=== PATIENT | female | born 1970 | race Caucasian/White ===

== ENCOUNTER → 2018-06-26 | Outpatient (CLI) | payer BC ==
[2018-06-26 22:50] LABS: Vitamin D 25 Hydroxy 44.5 ng/mL (30.0-100.0)
== END | disposition home or self-care (01) ==
LOC: LABWHC1 15:37
PROVIDERS: ATTEND Obstetrics & Gynecology
DX: E34.9 Endocrine disorder, unspecified (principal); Z13.29 Encounter for screening for other suspected endocrine disorder; Z13.21 Encounter for screening for nutritional disorder
CPT/HCPCS: 36415; 82306; 83001; 83002; 84439; 84443

== ENCOUNTER → 2019-02-27 | Outpatient (CLI) | payer BC ==
[2019-02-27 07:47] LABS: HCT 40.1 % (34.0-46.0); HGB 13.1 gm/dL (11.4-16.0); MCH 32.2 pg (25.0-35.0); MCHC 32.6 g/dL (31.0-37.0); MCV 98.8 fL (80.0-100.0); Mean Platelet Volume 6.8; Platelet Count 260 k/uL (150-450); RBC 4.06 m/uL (3.80-5.40); RDW 11.8 % (11.5-15.5)
[2019-02-27 11:50] LABS: African American GFR (CKD) 101.8 (60.0-200.0); Albumin 4.7 g/dL (3.80-4.90); Albumin/Globulin Ratio 2.35 (1.60-3.17); Anion Gap 8.6 mmol/L (4.00-12.00); BUN/Creat Ratio 16.25 Ratio (12.00-20.00); Calcium 9.7 mg/dL (8.7-10.3); Carbon Dioxide 27.4 mmol/L (21.6-31.8); Chol/HDL Ratio 2.79; LDL Cholesterol,Calculated 87.4 mg/dL (0.0-131.0); Potassium 4.3 mmol/L (3.5-5.5); Total Bilirubin 0.7 mg/dL (0.3-1.2); Total Protein 6.7 g/dL (6.2-8.2); VLDL Calculation 14.6 mg/dL (5.00-40.00)
[2019-02-27 14:26] LABS: Hemoglobin A1C 5.2 % (4.0-6.0)
== END | disposition home or self-care (01) ==
LOC: LABWHC1 07:21
PROVIDERS: ATTEND Family Medicine
DX: F32.9 Major depressive disorder, single episode, unspecified (principal); E66.3 Overweight
CPT/HCPCS: 36415; 80053; 80061; 83036; 84443; 85027

== ENCOUNTER → 2020-07-05 | Outpatient (CLI) | payer BC ==
--- NOTE | 2020-07-06 12:01 | MM ---
Reason for exam: screening (asymptomatic). Last mammogram was performed 6 years and 7 months ago. Physical Findings: A clinical breast exam by your physician is recommended on an annual basis and results should be correlated with mammographic findings. MG Screening Mammo w CAD Bilateral CC and MLO view(s) were taken. Prior study comparison: December 02, 2013, bilateral MG screening mammo w CAD. The breast tissue is heterogeneously dense. This may lower the sensitivity of mammography. There are benign appearing round calcifications bilaterally. Asymmetric breast tissue right breast, stable since 2012. There is no discrete abnormality. ASSESSMENT: Negative, BI-RAD 1 RECOMMENDATION: Routine screening mammogram of both breasts in 1 year.
== END | disposition home or self-care (01) ==
LOC: RADMAMWWP 11:44
PROVIDERS: ATTEND Family Medicine
DX: Z12.31 Encounter for screening mammogram for malignant neoplasm of breast (principal)
CPT/HCPCS: 77067

== ENCOUNTER 2020-08-01 12:41 | Emergency (ER) | payer BC ==
[2020-08-01 12:50] VITALS: BP 132/92; PULSE 80; RESP 18; TEMP 98.2
--- NOTE | 2020-08-01 13:19 | ED ---
Lower Extremity Injury HPI - General Chief Complaint: Extremity Injury, Lower Stated Complaint: Fall, R Ankle Pain Time Seen by Provider: 08/01/20 12:57 Source: patient Mode of arrival: wheelchair Limitations: no limitations - History of Present Illness Initial Comments: Patient is a 50-year-old female presenting to the emergency department with complaints of right ankle pain after she tripped and fell just prior to arrival. Patient states she was playing with her dog when she missed 2 steps and fell down rolling her right ankle. She is complaining of pain in the lateral portion of her right ankle as well as the top of her right foot. She denies any other injuries from this fall, she did not hit her head. She denies any previous injuries or surgeries of her right ankle other than the common sprains. She has no further complaints at this time. - Related Data Home Medications Medication Instructions Recorded Confirmed Albuterol Inhaler (Mhu) [Ventolin 1 - 2 puff INHALATION Q6HR PRN 09/18/14 09/21/14 Inhaler] Budesonide/Formoterol Fumarate 2 puff INHALATION BID 09/18/14 09/21/14 [Symbicort 160-4.5 Mcg Inhaler] Escitalopram [Lexapro] 10 mg PO DAILY 09/18/14 09/21/14 Linzess(Unknown Dose) PO DAILY 09/18/14 09/21/14 Rizatriptan Benzoate [Maxalt] 10 mg PO DAILY PRN 09/18/14 09/21/14 Allergies Allergy/AdvReac Type Severity Reaction Status Date / Time No Known Allergies Allergy Verified 08/01/20 12:44 Review of Systems ROS Statement: Those systems with pertinent positive or pertinent negative responses have been documented in the HPI. ROS Other: All systems not noted in ROS Statement are negative. Past Medical History Past Medical History: Asthma Additional Past Medical History / Comment(s): hx. migraines, hevay,frequent periods History of Any Multi-Drug Resistant Organisms: None Reported Past Surgical History: Cholecystectomy, Tubal Ligation Additional Past Surgical History / Comment(s): D & C Past Anesthesia/Blood Transfusion Reactions: No Reported Reaction Past Psychological History: Anxiety Past Alcohol Use History: Occasional Past Drug Use History: None Reported - Past Family History Mother Family Medical History: Cancer General Exam - General Exam Comments Initial Comments: GENERAL: Patient is well-developed and well-nourished. Patient is nontoxic and in no acute distress. HEAD: Atraumatic, normocephalic. EYES: Pupils equal round and reactive to light, extraocular movements intact, sclera anicteric, conjunctiva are normal. Eyelids were unremarkable. ENT: Nares patent, oropharynx clear without exudates. Moist mucous membranes. NECK: Normal range of motion, supple without lymphadenopathy or JVD. LUNGS: Unlabored respirations. Breath sounds clear to auscultation bilaterally and equal. No wheezes rales or rhonchi. HEART: Regular rate and rhythm without murmurs, rubs or gallops. ABDOMEN: Soft, nontender, normoactive bowel sounds. No guarding, no rebound. No masses appreciated. : Deferred MUSCULOSKELETAL: Patient has pain to palpation of the right lateral malleolus, there is some mild swelling present, decreased active range of motion secondary to pain. She also has some mild pain to palpation in the dorsal aspect of the right foot. She is neurovascular intact. Rest of extremities are within normal limits. No clubbing or cyanosis. NEUROLOGICAL: Patient is alert and oriented x 3. Motor and sensory are also intact. Cranial nerves II through XII grossly intact. Symmetrical smile. Normal speech, normal gait. PSYCH: Normal mood, normal affect. SKIN: Warm, Dry, normal turgor, no rashes or lesions noted. Limitations: no limitations Course Vital Signs 08/01/20 12:46 Temperature 98.2 F Pulse Rate 80 Respiratory 18 Rate Blood Pressure 132/92 O2 Sat by Pulse 99 Oximetry Procedures - Orthopedic Splinting/Casting Injury #1 Side: right Lower Extremity Injury Location: ankle Lower Extremity Immobilizer: stirrup splint, Brent wrap Medical Decision Making - Medical Decision Making Patient is a 50-year-old female here with right foot and ankle pain after she tripped and fell just prior to arrival. No previous injuries or surgeries. X- rays reveal no acute fractures dislocations, there is question of an old injury. I did recommend a splint for patient, she refused, she was willing to take an Aircast home. I did place an Brent wrap on the patient, recommended nonweightbearing, she has seen [facility] in [facility] past, we'll give her referral. Recommended ice, elevation, compression. She is requesting a work note. She is stable for discharge. Case discussed with Dr. Shaver. Disposition Clinical Impression: Right ankle sprain Disposition: HOME SELF-CARE Condition: Stable Instructions (If sedation given, give patient instructions): Ankle Sprain (ED) Additional Instructions: Please return to the Emergency Department if symptoms worsen or any other concerns. Recommend following up with orthopedics in one week. Continue with brace, ice, compression and ibuprofen for discomfort. Is patient prescribed a controlled substance at d/c from ED?: No Referrals: Hood Smart MD [Primary Care Provider] - 1-2 days Gordy Reyes MD [STAFF PHYSICIAN] - 1-2 days Time of Disposition: 13:58
--- NOTE | 2020-08-01 13:35 | XR ---
EXAMINATION TYPE: XR ankle complete RT, XR foot complete RT DATE OF EXAM: 08/01/2020 CLINICAL HISTORY: Fall injury with pain TECHNIQUE: Frontal, lateral and oblique images of the right ankle and foot are obtained. COMPARISON: None. FINDINGS: There is no acute fracture/dislocation evident in the right ankle. The ankle mortise appe ars within normal limits. The overlying soft tissue appears unremarkable. There is no acute fracture or dislocation evident in the right foot. There is absent distal one thir d of the fifth proximal phalanx with small rounded density, suspect old injury. Correlate clinically. The joint spaces in the right foot are preserved. Overlying soft tissue is unremarkable. IMPRESSION: There is no acute fracture or dislocation in the right ankle or foot.
== END 2020-08-01 14:04 | disposition home or self-care (01) ==
LOC: EC 12:41
DX: S93.401A Sprain of unspecified ligament of right ankle, initial encounter (principal); J45.909 Unspecified asthma, uncomplicated; F41.9 Anxiety disorder, unspecified; Z79.51 Long term (current) use of inhaled steroids; Z79.899 Other long term (current) drug therapy; W01.0XXA Fall on same level from slipping, tripping and stumbling without subsequent striking against object, initial encounter
CPT/HCPCS: 29515; 99283

== ENCOUNTER → 2020-11-23 | Outpatient (CLI) | payer BC | END | disposition home or self-care (01) | LOC: LABWHC1 11:37 | PROVIDERS: ATTEND Nurse Practitioner Family | DX: J30.89 Other allergic rhinitis (principal) | CPT/HCPCS: 36415 ==

== ENCOUNTER → 2020-12-02 | Outpatient (CLI) | payer BC ==
--- NOTE | 2020-12-02 08:02 | CT ---
EXAMINATION TYPE: CT sinus wo con DATE OF EXAM: 12/02/2020 COMPARISON: None HISTORY: Chronic Sinusitis CT DLP: 596.[address] of the paranasal sinuses was performed in the axial and coronal planes. Bone and soft tissue settings are submitted. There is evidence of prior medial maxillary antrectomy bilaterally. There is moderate mucosal thicken ing of the maxillary sinuses. Partial ethmoidectomy noted with remaining ethmoid air cells demonstrat e mucosal thickening and opacification. The frontal sinuses well aerated. Sphenoid sinus demonstrates mild mucosal thickening. Mastoid air cells are well-aerated. No bony destructive process seen. The n gerard septum is midline. IMPRESSION: Chronic sinusitis and postoperative changes noted.
== END | disposition home or self-care (01) ==
LOC: RADCTMAIN 06:47
PROVIDERS: ATTEND Otolaryngology
DX: J32.9 Chronic sinusitis, unspecified (principal); Z98.890 Other specified postprocedural states
CPT/HCPCS: 70486

== ENCOUNTER → 2021-04-26 | Outpatient (CLI) | payer BC ==
[2021-04-26 11:04] LABS: HCT 40.8 % (37.2-46.3); HGB 12.8 g/dL (12.0-15.0); MCH 31.4 pg (27.0-32.0); MCHC 31.4 g/dL (32.0-37.0); MCV 100.2 fL (80.0-97.0); Mean Platelet Volume 10.5 fL (9.5-12.2); Platelet Count 338 X 10*3/uL (140-440); RBC 4.07 X 10*6/uL (4.10-5.20); RDW 11.4 % (11.5-14.5); WBC 9.07 X 10*3/uL (4.50-10.00)
[2021-04-26 12:29] LABS: Thyroid Peroxidase Antibodies 10.3 U/mL (0.0-33.0)
[2021-04-26 13:15] LABS: Prolactin 14.4 ng/mL (2.800-29.200); Testosterone 5.41 ng/mL (7.00-45.62)
[2021-04-26 13:24] LABS: African American GFR (CKD) 90.4 (60.0-200.0); Albumin 4.4 g/dL (3.8-4.9); Albumin/Globulin Ratio 2.39 (1.60-3.17); Anion Gap 11.9 mmol/L (10.00-18.00); BUN/Creat Ratio 15.8 Ratio (12.00-20.00); Blood Urea Nitrogen 13.7 mg/dL (9.0-27.0); Calcium 9.4 mg/dL (8.7-10.3); Carbon Dioxide 25.4 mmol/L (20.0-27.5); Follicle Stimulating Hormone 6.8 mIU/mL; Globulin 1.8 g/dL (1.6-3.3); Luteinizing Hormone 22.2 mIU/mL; T4, Free (Free Thyroxine) 1.05 ng/dL (0.800-1.800); Total Bilirubin 0.2 mg/dL (0.30-1.20); Total Protein 6.2 g/dL (6.2-8.2)
[2021-04-27 09:57] LABS: ACTH 17.9 pg/mL (0.00-45.99)
== END | disposition home or self-care (01) ==
LOC: LABWHC1 07:43
PROVIDERS: ATTEND Internal Medicine Endocrinology, Diabetes & Metabolism
DX: R53.83 Other fatigue (principal)
CPT/HCPCS: 36415; 80053; 82024; 82533; 82607; 83001; 83002; 84146; 84403; 84439; 84443; 84481; 85027; 86376

== ENCOUNTER → 2021-08-10 | Outpatient (CLI) | payer BC ==
--- NOTE | 2021-08-10 12:03 | CONS ---
CONSULTATION DATE OF SERVICE: 08/10/2021 This 51-year-old lady has been evaluated in Sleep Center for excessive daytime sleepiness. HISTORY OF PRESENT ILLNESS/SLEEP-WAKE EVALUATION: Patient's usual sleep schedule is from 10 p.m. to 6 a.m. and on weekends from 10 p.m., but then it varies; she wakes up later. No problems with falling asleep. She falls asleep quite quickly. She has a TV set in the bedroom. She sleeps in different positions. Previously she mostly would sleep on her back, but now has started to sleep more on the side. She wakes up from sleep one time with nocturia. No history of hypnagogic hallucinations, sleep paralysis or cataplexy. In the morning the patient wakes up tired, has episodes of anxiety, irritability. [place] Sleepiness Scale increased to 12. PAST MEDICAL HISTORY: Positive for anxiety, acid reflux, sinus problems. PAST SURGICAL HISTORY: Cholecystectomy, tubal ligation, sinus surgery. CURRENT MEDICATIONS: 1. Lexapro 20 mg once a day. 2. Nexium 40 mg twice a day. FAMILY HISTORY: Positive for heart problems, cancer, diabetes. SOCIAL HISTORY: Positive for smoking in the past. Alcohol consumption: Beer on weekends. REVIEW OF SYSTEMS: Sleepiness during the day. [place] Sleepiness Scale increased to 12. No fevers. No double vision. No recent chest pain. No shortness of breath. No abdominal pain. No bleeding episodes. No blood in the urine. No seizure episodes. PHYSICAL EXAMINATION: GENERAL: Pleasant lady without distress. VITAL SIGNS: BP 137/88, HR 57, RR 16, height 5 feet 5 inches, weight 171.6, body mass index 28.4, temperature 97.1, oxygen saturation at room air 98%. HEENT: PERRLA, EOMI, evaluation of oropharynx showed tongue protrudes midline. Extremely low position of soft palate; Mallampati IV. NECK: Supple, no JVD. Thyroid is not palpable. Neck measures 14 inches in circumference. LUNGS: Clear to percussion and to auscultation. Good air exchange. No wheezing or rhonchi. HEART: S1, S2 regular. No murmurs, gallops, or rubs. ABDOMEN: Soft and nontender. Bowel sounds are present. No organomegaly appreciated. EXTREMITIES: No clubbing or cyanosis. INTEGRATION SOLUTION ARCHITECT: Awake, alert, and oriented X3. Cranial nerves 2 to 7 intact. There is no fasciculation or atrophy. noted. No focal deficits observed. IMPRESSION: 1. Sleepiness during the day, [place] Sleepiness Scale increased to 12, extremely low position of soft palate, Mallampati IV; possible obstructive sleep apnea-hypopnea syndrome. 2. History of anxiety. 3. Acid reflux. 4. Status post cholecystectomy. 5. Status post tubal ligation. 6. History of sinus problems. PLAN: 1. Home sleep apnea test for evaluation of patient's breathing during sleep. 2. If the sleep study if positive, we will initiate treatment with CPAP; if negative, we may consider multiple sleep latency test for objective evaluation of patient's symptoms of excessive daytime sleepiness. 3. CPAP/BiPAP titration if sleep study confirms obstructive sleep apnea-hypopnea syndrome. 4. Preferable position during sleep on the side. 5. No driving if patient feels any sleepiness. 6. I will see patient for follow up visit to explain results of testing and following plan. Thank you very much for referring this patient for consultation. Sincerely, Rancho Kaplan MD, PhD, FAASM Diplomat of [place] [employer] Sleep Medicine Board of [place] [employer] of [employer] Medicine Senior Cyber Security Analyst of [facility] [employer] MMODL / IJN: [id number] /
== END ==
LOC: SLEEP 09:49
PROVIDERS: ATTEND Internal Medicine
DX: G47.10 Hypersomnia, unspecified (principal); F41.9 Anxiety disorder, unspecified; K21.9 Gastro-esophageal reflux disease without esophagitis; Z90.49 Acquired absence of other specified parts of digestive tract; Z98.51 Tubal ligation status; Z87.09 Personal history of other diseases of the respiratory system; Z87.891 Personal history of nicotine dependence
CPT/HCPCS: 99211

== ENCOUNTER → 2021-10-14 | Outpatient (CLI) | payer BC ==
--- NOTE | 2021-10-14 07:58 | USB ---
Reason for Exam: Clinical finding. Last mammogram was performed 1 year(s) and 4 month(s) ago. Indicated Problems: Lump or thickening of the right side for 1 Week(s). Patient History: Menarche at age 14. First Full-Term at age 20. Postmenopausal. Risk Values: [place] 5 year model risk: 0.7%. NCI Lifetime model risk: 6.5%. Prior Study Comparison: 11/13/2012 Bilateral Screening Mammogram, [facility]. 12/02/2013 Bilateral Screening Mammogram, [facility]. 07/05/2020 Bilateral Screening Mammogram, [facility]. Tissue Density: There are scattered fibroglandular densities. Findings: Analyzed By CAD. Mammogram No suspicious spiculated or lobular masses, cluster microcoils, architectural distortion, or other secondary signs of malignancy are radiographically apparent. There are some scattered benign calcifications present. At the level marked by the patient of a palpable region, no suspicious mammographic abnormality is evident. Ultrasound is recommended.. Technique: Method: Targeted. Findings: The upper outer quadrant of the right breast, the axilla of the right breast and the retroareolar of the right breast were scanned. No discrete solid or cystic air is evident in the area of the palpable region. Clinical management is required. Overall Assessment: Benign, BI-RAD 2 Assessment: MG 3D diag mammo w/cad TALHA - Bilateral: Incomplete: need additional imaging evaluation, BI-RAD 0 - Right. US breast limited RT - Right: Negative, BI-RAD 1. Management: Screening Mammogram of both breasts in 1 year. A clinical breast exam by your physician is recommended on an annual basis and results should be correlated with mammographic findings. Results were given to the patient verbally at the time of exam. Electronically signed and approved by: Radhames Elizabeth D.O. Radiologis
== END | disposition home or self-care (01) ==
LOC: RADMAMWWP 07:01
PROVIDERS: ATTEND Obstetrics & Gynecology
DX: R92.8 Other abnormal and inconclusive findings on diagnostic imaging of breast (principal); Z78.0 Asymptomatic menopausal state
CPT/HCPCS: 77062; 77066

== ENCOUNTER → 2021-11-09 | Outpatient (CLI) | payer BC ==
[2021-11-09 10:48] LABS: ALT 16 U/L (8-44); AST 17 U/L (13-35); African American GFR (CKD) 117.1 (60.0-200.0); Albumin 4.5 g/dL (3.8-4.9); Albumin/Globulin Ratio 1.96 (1.60-3.17); Alkaline Phosphatase 79 U/L (41-126); BUN/Creat Ratio 32.57 Ratio (12.00-20.00); Blood Urea Nitrogen 22.8 mg/dL (9.0-27.0); Calcium 9.8 mg/dL (8.7-10.3); Carbon Dioxide 27.3 mmol/L (20.0-27.5); Chloride 102 mmol/L (96-109); Chol/HDL Ratio 4.03 Ratio; Globulin 2.3 g/dL (1.6-3.3); Glucose 96 mg/dL (70-110); LDL Cholesterol,Calculated 122.8 mg/dL (0.0-131.0); Potassium 4.8 mmol/L (3.5-5.5); Sodium 141 mmol/L (135-145); Total Protein 6.8 g/dL (6.2-8.2)
[2021-11-09 10:49] LABS: Basophils # (A) 0.07 X 10*3/uL (0.00-0.10); Basophils % (A) 0.8 %; Eosinophils % (A) 3.3 %; HCT 41.7 % (37.2-46.3); HGB 13.1 g/dL (12.0-15.0); Immature Grans, Automated 0.7 %; Lymphocytes # (A) 2.05 X 10*3/uL (0.90-5.00); Lymphocytes % (A) 22.8 %; MCH 31.2 pg (27.0-32.0); MCHC 31.4 g/dL (32.0-37.0); MCV 99.3 fL (80.0-97.0); Mean Platelet Volume 10.7 fL (9.5-12.2); Monocytes # (A) 0.54 X 10*3/uL (0.20-1.00); NRBC Per 100 WBC 0 /100 WBCS (0.0-0.0); Neutrophils # (A) 5.97 X 10*3/uL (1.80-7.70); Neutrophils % (A) 66.4 %; Platelet Count 335 X 10*3/uL (140-440); RDW 12.1 % (11.5-14.5); WBC 8.99 X 10*3/uL (4.50-10.00)
[2021-11-09 12:41] LABS: Testosterone <2.50 ng/mL (7.00-45.62)
== END | disposition home or self-care (01) ==
LOC: LABWHC1 07:18
PROVIDERS: ATTEND Family Medicine
DX: Z00.00 Encounter for general adult medical examination without abnormal findings (principal); F33.9 Major depressive disorder, recurrent, unspecified; M85.80 Other specified disorders of bone density and structure, unspecified site; R79.89 Other specified abnormal findings of blood chemistry
CPT/HCPCS: 36415; 80053; 80061; 82306; 84403; 84443; 85025

== ENCOUNTER → 2022-01-06 | Outpatient (CLI) | payer BC ==
--- NOTE | 2022-01-06 10:36 | CA ---
Stress Echo Report Ofelia Salomon Age: 51 Gender: F : 1970 Exam Date: 01/06/2022 09:16 Exam Location: [place] [facility] Ht (in): 65 Wt (lb): 166 Ordering Physician: Hood Gallardo MD Referring Physician: HOOD GALLARDO,, Sales And Service Change Leader: Nicolas Barillas Technologist Procedure CPT: Indication: R07.89 CP ICD-9 Codes: Rhythm: Patient History: Cardiac Medications: Medications in past 24 hours: Contrast: Stress Results Protocol: Brayan Total dose(mL): Exercise Duration (min:sec): 10:[address] Depression (mm): Angina Score: Ferraro Score: METS: 11.7 Resting HR: 65 Resting BP: 116 / 64 Peak HR: 164 Peak BP: 171 / 83 Max Predicted HR: 170 96 % Max Predicted HR Target HR: 145 Double Product: [id number] Stress Summary: BP Response: Reason for Termination: Reached target heart rate or work-load Cardiac Symptoms: NO SYMPTOMS ECG Analysis Resting ECG: Normal sinus rhythm normal axis normal intervals Stress ECG: No evidence of ST segment depression at peak exercise Arrhythmia: Echo Analysis Resting Echo: Normal left ventricular size wall motion systolic function Peak Echo Analysis: Normal hyperdynamic response of all segments of myocardium MEASUREMENTS (Male/Female) Normal Values CONCLUSIONS Good exercise tolerance Negative stress test by EKG criteria Negative stress echo Dr. Fabio Norton MD (Electronically Signed) Final Date: 06 January 2022 10:36
== END | disposition home or self-care (01) ==
LOC: RADNMMAIN 09:00
PROVIDERS: ATTEND Family Medicine
DX: R07.89 Other chest pain (principal)
CPT/HCPCS: 93351

== ENCOUNTER → 2022-02-15 | Outpatient (CLI) | payer BC ==
--- NOTE | 2022-02-15 15:56 | P.PN ---
Subjective DATE: 02/15/2022 FOLLOW UP VISIT. Patient returned to sleep center for follow-up to discuss results of sleep study and following plan. I discussed results of sleep studies with patient in details. Polysomnogram did not show any significant respiratory abnormalities, or any significant periodic limb movements. Multiple sleep latency test confirmed sleepiness mean sleep latency pathologically short 4.2 minutes. No sleep onset REM periods have been documented, but patient is on treatment with SSRIs. This medication may decrease amount of REM sleep. Patient continued to experience symptoms of significant excessive daytime sleepiness. . MEDICATIONS:1. Lexapro 20 mg once a day 2. Nexium 40 mg twice a day During physical exam: GENERAL: A pleasant patient without any distress. VITAL SIGNS: BP 127/85, HR 81, RR 14 , weight 173.4, temperature 97.1, oxygen saturation at room air 96% . HEENT: PERRLA, EOMI. NECK: Supple. No JVD. LUNGS: Clear to percussion and to auscultation. Good air exchange. No wheezing or rhonchi. HEART: S1, S2 regular. ABDOMEN: Soft and nontender. EXTREMITIES: No clubbing or cyanosis. DIRECTOR OF HOTEL OPERATIONS: Awake, alert, and oriented x3. No focal deficit. Impressions: 1. No significant respiratory abnormalities during the sleep. 2. No significant periodic limb movements.. 3. Multiple sleep latency test confirmed pathological sleepiness. Mean sleep latency only 4.2 minutes. No sleep onset REM periods have been documented, but patient is on treatment with SSRIs. Most probably narcolepsy type II. 4. Acid reflux. 5. History of anxiety. 6. Perimenopausal. 7. Status post uterus ablation for bleeding. Plan: 1. Patient will start treatment with Adderall 5 mg 1 tablet at 6 AM, 1 tablet at 11 AM, 1 tablet at 4 PM. 2. Sleep hygiene with regular time in bed for at least 8 hours. 3. Daytime naps permitted 4. Precautions related to driving. No driving if feel any sleepiness. Patient is aware about civil and criminal liability for unsafe driving, promised to follow recommendations. 5. Follow up visit in 1 months or earlier if patient has any problems. Thank you very much for allowing me to participate in the management of your patient. Rancho Kaplan MD, PhD, FAASM. Diplomat of [place] Board of Sleep Medicine, Sleep Medicine Board by [place] Board of Internal Medicine Beadworker of [facility] [place]
== END ==
LOC: SLEEP 15:20
PROVIDERS: ATTEND Internal Medicine
DX: G47.33 Obstructive sleep apnea (adult) (pediatric) (principal); K21.9 Gastro-esophageal reflux disease without esophagitis; Z79.811 Long term (current) use of aromatase inhibitors; Z86.59 Personal history of other mental and behavioral disorders; N95.9 Unspecified menopausal and perimenopausal disorder; N99.85 Post endometrial ablation syndrome; Z87.891 Personal history of nicotine dependence

== ENCOUNTER → 2022-04-06 | Outpatient (CLI) | payer BC ==
--- NOTE | 2022-04-06 16:05 | P.PN ---
Subjective DATE: 04/06/2022 FOLLOW UP VISIT. Patient and family returned to sleep center for follow-up visit to discuss results of sleep study and following plan. I discuss results of sleep studies with patient and family in details. Diagnostic polysomnogram did not show any significant respiratory abnormalities. Normal oxygenation during the sleep. Been documented. Some snoring have been documented during the sleep study. Mild periodic limb movements have been documented 15.8 times per hour with 2.4 micro-arousals per hour. [place] sleepiness scale is 10 which is on the border, during previous visit the [place] Sleepiness Scale was high at the range of 14. MEDICATIONS: None During physical exam: GENERAL: A pleasant girl without any distress. VITAL SIGNS: BP 120/76, HR 62, RR 16 , weight 133, temperature 98.2, oxygen saturation at room air 100 . HEENT: PERRLA, EOMI. NECK: Supple. No JVD. LUNGS: Clear to percussion and to auscultation. Good air exchange. No wheezing or rhonchi. HEART: S1, S2 regular. ABDOMEN: Soft and nontender. EXTREMITIES: No clubbing or cyanosis. DIGITAL ACCOUNT COORDINATOR: Awake, alert, and oriented x3. No focal deficit. Impressions: 1. No significant respiratory abnormalities during sleep 2. Mild periodic limb movements have been documented. 3. Patient has symptoms of excessive daytime sleepiness. 4. Snoring have been documented during the sleep test. 5. Seasonal ALLERGY. 6. History of night terrors. 7. History of asthma. 8. History of benign thyroid nodule. Status post left side thyroid resection for nodule. Plan: 1. Please check iron profile including ferritin level. Low level of iron may increase risk for periodic limb movements. If level of ferritin less than 50 ng/mL, iron supplementation is recommended. 2. Sleep hygiene with regular time in bed for at least 8 hours. 3. If patient will continue to have symptoms of excessive daytime sleepiness, we should proceed with the multiple sleep latency test for objective evaluation sleepiness and if necessary pharmacotherapy. 4. Precautions related to driving. No driving if feel any sleepiness. Thank you very much for allowing me to participate in the management of your patient. Rancho Kaplan MD, PhD, FAASM. Diplomat of [place] Board of Sleep Medicine, Sleep Medicine Board by [place] Board of Internal Medicine Arcade Games Mechanic of [facility] [place]
--- NOTE | 2022-04-06 17:11 | P.PN ---
Subjective DATE: 04/06/2022 FOLLOW UP VISIT. Patient returned to sleep center for follow-up visit related to treatment of significant excessive daytime sleepiness secondary to narcolepsy. Presently patient is on treatment with Adderall 5 mg 3 times a day. Patient continued to feel sleepiness during the day with his dose. She feels improvements after 10 mg of Adderall. [place] Sleepiness Scale today is 10, which is borderline. . MEDICATIONS:1. Adderall 5 mg 3 times a day 2. Lexapro 20 mg once a day 3. Nexium 40 mg twice a day During physical exam: GENERAL: A pleasant patient without any distress. VITAL SIGNS: BP 146/87, HR 95, RR 16 , weight 175, temperature 98.1, oxygen saturation at room air 95% . HEENT: PERRLA, EOMI. NECK: Supple. No JVD. LUNGS: Clear to percussion and to auscultation. Good air exchange. No wheezing or rhonchi. HEART: S1, S2 regular. ABDOMEN: Soft and nontender. EXTREMITIES: No clubbing or cyanosis. LEAK DETECTION ENGINEER: Awake, alert, and oriented x3. No focal deficit. Impressions: 1. Most probably narcolepsy type II. Mean sleep latency by multiple sleep latency test is only 4.2 minutes. No sleep onset REM periods have been documented but this could be secondary to SSRIs. 2. History of anxiety. 3. Acid reflux. 4. . Perymenopausal. 5. Status post uterus ablation for bleeding. Plan: 1. Patient will continue treatment with Adderall, dose will be increased to 10 mg 3 times a day. 2. Sleep hygiene with regular time in bed for at least 8 hours. 3. Daytime naps permitted 4. Precautions related to driving. No driving if feel any sleepiness. Patient is aware about civil and criminal liability for unsafe driving, promised to follow recommendations. 5. Follow up visit in 4-6 months or earlier if patient has any problems. Thank you very much for allowing me to participate in the management of your patient. Rancho Kaplan MD, PhD, FAASM. Diplomat of [place] [employer] Sleep Medicine, Sleep Medicine Board by [place] [employer] of Internal Medicine Inside Horticultural Specialty Grower of [facility] [place]
== END ==
LOC: SLEEP 15:58
PROVIDERS: ATTEND Internal Medicine
DX: G47.61 Periodic limb movement disorder (principal); G47.10 Hypersomnia, unspecified; R06.83 Snoring; F51.4 Sleep terrors [night terrors]; Z87.09 Personal history of other diseases of the respiratory system; Z86.018 Personal history of other benign neoplasm; Z87.891 Personal history of nicotine dependence
CPT/HCPCS: 99212

== ENCOUNTER → 2022-04-14 | Outpatient (CLI) | payer BC ==
[2022-04-14 10:51] LABS: HCT 42.9 % (37.2-46.3); MCH 31.5 pg (27.0-32.0); MCHC 32.6 g/dL (32.0-37.0); MCV 96.4 fL (80.0-97.0); Mean Platelet Volume 10.6 fL (9.5-12.2); NRBC Per 100 WBC 0 /100 WBCS (0.0-0.0); Platelet Count 305 X 10*3/uL (140-440); RBC 4.45 X 10*6/uL (4.10-5.20); RDW 11.9 % (11.5-14.5); WBC 10.08 X 10*3/uL (4.50-10.00)
[2022-04-14 11:15] LABS: Thyroid Peroxidase Antibodies <9.0 U/mL (0.0-33.0)
[2022-04-14 11:16] LABS: Follicle Stimulating Hormone 77.6 mIU/mL; Luteinizing Hormone 70.1 mIU/mL
[2022-04-14 11:21] LABS: ALT 27 U/L (8-44); AST 24 U/L (13-35); African American GFR (CKD) 83.1 (60.0-200.0); Albumin 4.7 g/dL (3.8-4.9); Albumin/Globulin Ratio 1.89 (1.60-3.17); Alkaline Phosphatase 80 U/L (41-126); BUN/Creat Ratio 15.69 Ratio (12.00-20.00); Blood Urea Nitrogen 14.5 mg/dL (9.0-27.0); Calcium 9.7 mg/dL (8.7-10.3); Chloride 104 mmol/L (96-109); Globulin 2.5 g/dL (1.6-3.3); Glucose 87 mg/dL (70-110); Non-African American GFR(CKD) 71.7 (60.0-200.0); Potassium 4.2 mmol/L (3.5-5.5); Sodium 143 mmol/L (135-145); Total Protein 7.2 g/dL (6.2-8.2)
[2022-04-14 11:30] LABS: Testosterone <2.50 ng/mL (7.00-45.62)
[2022-04-14 13:16] LABS: ACTH 9.03 pg/mL (0.00-45.99)
== END | disposition home or self-care (01) ==
LOC: LABWHC1 07:23
PROVIDERS: ATTEND Internal Medicine Endocrinology, Diabetes & Metabolism
DX: R53.83 Other fatigue (principal)
CPT/HCPCS: 36415; 80053; 82024; 82533; 82607; 83001; 83002; 84146; 84403; 84439; 84443; 84481; 85027; 86376

== ENCOUNTER → 2022-11-08 | Outpatient (CLI) | payer BC ==
--- NOTE | 2022-11-08 13:53 | P.PN ---
Subjective DATE: 11/08/2022 FOLLOW UP VISIT. Patient returned to sleep center for follow-up visit related to treatment of significant excessive daytime sleepiness secondary to narcolepsy. Patient is on treatment with Adderall 10 mg 3 times a day. Most of the time her alertness is under control. Sometimes she may feel heavy eyes while driving, although patient takes Adderall 15 minutes before starting driving in the morning around 9 AM and the afternoon around 4:30 PM. He feels that medications started to work in about 1 hour after taking it . [place] sleepiness scale is 10, which is borderline. MEDICATIONS:1. Adderall 10 mg 3 times a day 2. Lexapro 20 mg once a day 3. Nexium 40 mg twice a day During physical exam: GENERAL: A pleasant patient without any distress. VITAL SIGNS: BP 144/92, HR 80, RR 18, weight 179.2, temperature 98.3, oxygen saturation at room air 95. HEENT: PERRLA, EOMI. NECK: Supple. No JVD. LUNGS: Clear to percussion and to auscultation. Good air exchange. No wheezing or rhonchi. HEART: S1, S2 regular. ABDOMEN: Soft and nontender. EXTREMITIES: No clubbing or cyanosis. HYDROGEOLOGY PROFESSOR: Awake, alert, and oriented x3. No focal deficit. Impressions: 1. Narcolepsy 2. Mean sleep latency 4.2 minutes during MSLT. No sleep onset REM periods have been documented but the that could be secondary to SSRIs 2. History of anxiety. 3. Acid reflux. 4.. Menopausal. 5. Status post uterosacral ablation for bleeding. Plan: 1. Patient will continue treatment with Adderall 10 mg 3 times a day, but patient will change time of taking Adderall about 1-1/[address] We may consider to increase the dose of Adderall if it will be necessary. 2. Sleep hygiene with regular time in bed for at least 8 hours. 3. Daytime naps permitted 4. Precautions related to driving. No driving if feel any sleepiness. Patient is aware about civil and criminal liability for unsafe driving, promised to follow recommendations. 5. Follow up visit in 4-6 months or earlier if patient has any problems. Thank you very much for allowing me to participate in the management of your patient. Rancho Kaplan MD, PhD, FAASM. Diplomat of [place] Board of Sleep Medicine, Sleep Medicine Board by [place] [employer] of Internal Medicine Substation Operator Conversion of [facility] [place] So isn't
== END ==
LOC: 3 N SLEEP 11:40
PROVIDERS: ATTEND Internal Medicine
DX: G47.419 Narcolepsy without cataplexy (principal); F41.9 Anxiety disorder, unspecified; K21.9 Gastro-esophageal reflux disease without esophagitis; Z78.0 Asymptomatic menopausal state; Z87.891 Personal history of nicotine dependence
CPT/HCPCS: 99212

== ENCOUNTER → 2023-03-15 | Outpatient (CLI) | payer BC ==
--- NOTE | 2023-03-15 15:13 | P.PN ---
Subjective DATE: 03/15/2023 FOLLOW UP VISIT. Patient returned to sleep center for follow-up visit related to treatment of significant excessive daytime sleepiness secondary to narcolepsy. Patient is on treatment with Adderall 10 mg 3 times a day. With this regimen patient continued to feel some sleepiness. What my recommendations she tried 20 mg t wice a day and with this regimen patient feels fine, no side effects, normal alertness . [place] sleepiness scale is 6, which is normal. MEDICATIONS:1. Adderall 2. Lexapro 20 mg once a day 3. Famotidine 40 mg twice a day During physical exam: GENERAL: A pleasant patient without any distress. VITAL SIGNS: BP 153/98, HR 78, RR 16, weight[], temperature [], oxygen saturation at room air[] . HEENT: PERRLA, EOMI. NECK: Supple. No JVD. LUNGS: Clear to percussion and to auscultation. Good air exchange. No wheezing o r rhonchi. HEART: S1, S2 regular. ABDOMEN: Soft and nontender. EXTREMITIES: No clubbing or cyanosis. CLINICAL LABORATORY SCIENTIST: Awake, alert, and oriented x3. No focal deficit. Impressions: 1. Narcolepsy type II, sleepiness confirmed by M SLT, mean sleep latency 4.2. No sleep onset REM periods, but patient is on treatment with SSRI. 2. Acid reflux. 3. History of anxiety. 4. Menopause. 5. Status post uterus ablation for bleeding. Plan: 1. Patient will continue treatment with Adderall 20 mg twice a day. 2. Sleep hygiene with regular time in bed for at least 8 hours. 3. Daytime naps permitted 4. Precautions related to driving. No driving if feel any sleepiness. Patient is aware about civil and criminal liability for unsafe driving, promised to follow recommendations. 5. Follow up visit in 4-6 months or earlier if patient has any problems. Thank you very much for allowing me to participate in the management of your patient. Rancho Kaplan MD, PhD, FAASM. Diplomat of [place] [employer], Sleep Medicine Board by [place] [employer] Seismograph Observer of [facility] [place]
== END ==
LOC: 3 N SLEEP 13:24
PROVIDERS: ATTEND Internal Medicine
DX: G47.419 Narcolepsy without cataplexy (principal); K21.9 Gastro-esophageal reflux disease without esophagitis; F41.9 Anxiety disorder, unspecified; Z78.0 Asymptomatic menopausal state; Z98.890 Other specified postprocedural states; Z87.891 Personal history of nicotine dependence
CPT/HCPCS: 99212

== ENCOUNTER → 2023-06-21 | Outpatient (CLI) | payer BC ==
[2023-06-21 10:55] LABS: HCT 43.3 % (37.2-46.3); HGB 13.7 g/dL (12.0-15.0); MCH 31.4 pg (27.0-32.0); MCHC 31.6 g/dL (32.0-37.0); MCV 99.3 FL (80.0-97.0); Mean Platelet Volume 10.7 FL (9.5-12.2); NRBC Per 100 WBC 0 X 10*3/uL (0.00-0.01); Platelet Count 347 X 10*3/uL (140-440); RBC 4.36 X 10*6/uL (4.10-5.20); RDW 12.3 % (11.5-14.5); WBC 10.07 X 10*3/uL (4.50-10.00)
[2023-06-21 11:28] LABS: % Iron Saturation 23.01 (12.00-45.00); T4, Free (Free Thyroxine) 1.08 ng/dL (0.80-1.80)
--- NOTE | 2023-06-21 19:25 | MM ---
Reason for Exam: Screening (asymptomatic). Last mammogram was performed 1 year(s) and 8 month(s) ago. Patient History: Menarche at age 14. First Full-Term at age 20. Postmenopausal. Risk Values: Julia 5 year model risk: 0.8%. NCI Lifetime model risk: 6.3%. Prior Study Comparison: 12/02/2013 Bilateral Screening Mammogram, [facility]. 07/05/2020 Bilateral Screening Mammogram, [facility]. 10/14/2021 Bilateral MG 3D diag mammo w/cad TALHA, [facility]. Tissue Density: There are scattered areas of fibroglandular density. Findings: Analyzed By CAD. There is an enlarging focal asymmetry within the central right breast at a middle depth for which further evaluation is recommended. Overall Assessment: Incomplete: need additional imaging evaluation, BI-RAD 0 Management: Special View Mammogram of the right breast. Diagnostic Breast Ultrasound of the right breast. . [facility] will attempt to contact patient to return for supplemental views and ultrasound if indicated. Electronically signed and approved by: Trenton Maya M.D. Radiologist
== END | disposition home or self-care (01) ==
LOC: RADMAMWWP 06:46
PROVIDERS: ATTEND Family Medicine
DX: Z12.31 Encounter for screening mammogram for malignant neoplasm of breast (principal); E66.09 Other obesity due to excess calories; E07.89 Other specified disorders of thyroid; R53.83 Other fatigue; Z78.0 Asymptomatic menopausal state
CPT/HCPCS: 36415; 77063; 77067; 82607; 82728; 83540; 83550; 84305; 84439; 84443; 85027

== ENCOUNTER → 2023-06-26 | Outpatient (CLI) | payer BC ==
--- NOTE | 2023-06-26 14:57 | MM ---
Reason for Exam: Additional evaluation requested from abnormal screening. Last screening mammogram was performed less than 1 month ago. Patient History: Menarche at age 14. First Full-Term at age 20. Postmenopausal. Risk Values: Julia 5 year model risk: 0.8%. NCI Lifetime model risk: 6.3%. Prior Study Comparison: 07/05/2020 Bilateral Screening Mammogram, [facility]. 10/14/2021 Bilateral MG 3D diag mammo w/cad TALHA, [facility]. 10/14/2021 Right US breast limited RT, [facility]. 06/21/2023 Bilateral MG 3D screening mammo w/cad, [facility]. Tissue Density: Right: There are scattered areas of fibroglandular density. Findings: Analyzed By CAD. 1.2 cm lobulated mass or cysts 9:00 central right breast. Further ultrasound evaluation is recommended. Overall Assessment: Incomplete: need additional imaging evaluation, BI-RAD 0 Management: Diagnostic Breast Ultrasound of the right breast. Electronically signed and approved by: Trenton Maya M.D. Radiologist
--- NOTE | 2023-06-26 15:22 | USB ---
Reason for Exam: Additional evaluation requested from abnormal screening. Patient History: Menarche at age 14. First Full-Term at age 20. Postmenopausal. Risk Values: Julia 5 year model risk: 0.8%. NCI Lifetime model risk: 6.3%. Technique: Method: Targeted. Prior Study Comparison: 07/05/2020 Bilateral Screening Mammogram, [facility]. 10/14/2021 Bilateral MG 3D diag mammo w/cad TALHA, [facility]. 06/21/2023 Bilateral MG 3D screening mammo w/cad, [facility]. Findings: The upper outer quadrant of the right breast, the axilla of the right breast and the retroareolar of the right breast were scanned. Ultrasound upper outer right breast 9:00 to 11:00 including scanning of the subareolar region and axilla. There is a deep cyst with minimal debris at the 9:00 position, 9 cm from the nipple measuring 10 x 9 x 4 mm. This may correspond to the mammographic finding. Close surveillance follow-up recommended to ensure stability of the new mammographic mass. Overall Assessment: Probably benign, BI-RAD 3 Management: Diagnostic Mammogram of the right breast in 3 months. A clinical breast exam by your physician is recommended on an annual basis and results should be correlated with mammographic findings. This exam should not preclude additional follow-up of suspicious palpable abnormalities. Results were given to the patient verbally at the time of exam. Electronically signed and approved by: Trenton Maya M.D. Radiologist
== END | disposition home or self-care (01) ==
LOC: RADMAMWWP 14:20
PROVIDERS: ATTEND Family Medicine
DX: R92.321 Mammographic fibroglandular density, right breast (principal); Z78.0 Asymptomatic menopausal state
CPT/HCPCS: 77061; 77065

== ENCOUNTER → 2023-09-20 | Outpatient (CLI) | payer BC ==
[2023-09-20 13:21] VITALS: BP 135/89; PULSE 88; RESP 16; TEMP 97.9
--- NOTE | 2023-09-20 13:36 | P.PROGSL ---
Subjective DATE: 09/20/2023 FOLLOW UP VISIT. Patient returned to sleep center for follow-up visit related to treatment of significant excessive daytime sleepiness secondary to narcolepsy. Presently patient is on treatment with Adderall 20 mg twice a day. No side effects including jittering or tachycardia. Alertness improved to normal range. [place] sleepiness scale is 5 today. MEDICATIONS: Please see below During physical exam: GENERAL: A pleasant patient without any distress. VITAL SIGNS: Please see below. HEENT: PERRLA, EOMI. NECK: Supple. No JVD. LUNGS: Clear to percussion and to auscultation. Good air exchange. No wheezing or rhonchi. HEART: S1, S2 regular. ABDOMEN: Soft and nontender. EXTREMITIES: No clubbing or cyanosis. ARMORED CAR GUARD: Awake, alert, and oriented x3. No focal deficit. Impressions: 1. Narcolepsy type II, confirmed by MSLT with mean sleep latency 4.2. No sleep onset REM.'s, but patient was on SSRIs. 2. History of anxiety. 3. Acid reflux. 4. Menopause. 5. Status post uterus ablation for bleeding. Plan: 1. Patient will continue treatment with Adderall 20 mg 2 times a day. Prescription was given to the patient. 2. Sleep hygiene with regular time in bed for at least 8 hours. 3. Daytime naps permitted 4. Precautions related to driving. No driving if feel any sleepiness. Patient is aware about civil and criminal liability for unsafe driving, promised to follow recommendations. 5. Follow up visit in 4-6 months or earlier if patient has any problems. Thank you very much for allowing me to participate in the management of your patient. Rancho Kaplan MD, PhD, FAASM. Diplomat of [place] [employer], Sleep Medicine Board by [place] [employer] Assembler Piano of [facility] [place] Objective - Vital Signs Vital Signs: Vital Signs Temp 97.9 F 09/20/23 13:21 Pulse 88 09/20/23 13:21 Resp 16 09/20/23 13:21 BP 135/89 09/20/23 13:21 Pulse Ox 98 09/20/23 13:21 FiO2 Intake & Output 09/19/23 09/20/23 09/20/23 18:59 06:59 18:59 Weight 79.832 kg Home Medications: Home Medications Medication Instructions Recorded Confirmed Type Albuterol Inhaler [Ventolin 1 - 2 puff INHALATION Q6HR PRN 09/18/14 09/21/14 History Inhaler] Budesonide/Formoterol Fumarate 2 puff INHALATION DIRECTED PRN 09/18/14 09/20/23 History [Symbicort 160-4.5 Mcg Inhaler] Escitalopram [Lexapro] 10 mg PO DAILY 09/18/14 09/20/23 History Linzess(Unknown Dose) PO DAILY 09/18/14 09/21/14 History Rizatriptan Benzoate [Maxalt] 10 mg PO DAILY PRN 09/18/14 09/21/14 History Dextroamphetamine/Amphetamine 10 mg PO TID 30 Days #90 tab 04/06/22 Rx [Adderall] Dextroamphetamine/Amphetamine 20 mg PO TID 3 Days #90 tab 06/15/22 09/20/23 Rx [Adderall] Dextroamphetamine/Amphetamine 10 mg PO TID 30 Days #90 tab 06/21/22 Rx [Adderall] Famotidine 20 mg PO BID 09/20/23 09/20/23 History Famotidine 40 mg PO 09/20/23 History RABEprazole SODIUM 20 mg PO BID 09/20/23 09/20/23 History
== END ==
LOC: 3 N SLEEP 13:02
PROVIDERS: ATTEND Internal Medicine
DX: G47.419 Narcolepsy without cataplexy (principal); K21.9 Gastro-esophageal reflux disease without esophagitis; F41.9 Anxiety disorder, unspecified; Z78.0 Asymptomatic menopausal state; Z98.890 Other specified postprocedural states; Z87.891 Personal history of nicotine dependence
CPT/HCPCS: 99212

== ENCOUNTER → 2023-09-26 | Outpatient (CLI) | payer BC ==
--- NOTE | 2023-09-26 07:46 | MM ---
Reason for Exam: Follow-up at short interval from prior study. Last screening mammogram was performed 3 month(s) ago. Patient History: Menarche at age 14. First Full-Term at age 20. Postmenopausal. Risk Values: Julia 5 year model risk: 0.8%. NCI Lifetime model risk: 6.3%. Prior Study Comparison: 10/14/2021 Bilateral MG 3D diag mammo w/cad TALHA, [facility]. 06/21/2023 Bilateral MG 3D screening mammo w/cad, [facility]. 06/26/2023 Right MG 3D work up w/cad RT, [facility]. Tissue Density: Right: The breasts are heterogeneously dense, which may obscure small masses. Findings: Analyzed By CAD. Nodular density right 9:00 position. All however ultrasound confirmation is advised. No new masses seen. Overall Assessment: Incomplete: need additional imaging evaluation, BI-RAD 0 Management: Diagnostic Breast Ultrasound of the right breast. . Results were given to the patient verbally at the time of exam. Patient should continue monthly self-breast exams. A clinical breast exam by your physician is recommended on an annual basis. This exam should not preclude additional follow-up of suspicious palpable abnormalities. Note on Julia scores and lifetime risk: 1. A Julia score greater than 3% is considered moderate risk. If this is the case, consider specialist referral to assess eligibility for a risk reducing agent. 2. If overall lifetime risk for the development of breast cancer is 20% or higher, the patient may qualify for future screening with alternating mammogram and breast MRI. Electronically signed and approved by: Mario Fischer M.D. Radiologis
--- NOTE | 2023-09-26 08:02 | USB ---
Reason for Exam: Follow-up at short interval from prior study. Patient History: Menarche at age 14. First Full-Term at age 20. Postmenopausal. Risk Values: Julia 5 year model risk: 0.8%. NCI Lifetime model risk: 6.3%. Technique: Method: Targeted. Doppler: Color. Patient Position: LPO. Prior Study Comparison: 10/14/2021 Bilateral MG 3D diag mammo w/cad TALHA, [facility]. 06/21/2023 Bilateral MG 3D screening mammo w/cad, [facility]. 06/26/2023 Right MG 3D work up w/cad RT, [facility]. 06/26/2023 Right US breast workup limited RT, [facility]. Findings: The lateral section of the breast of the right breast, the axilla of the right breast and the retroareolar of the right breast were scanned. Cystic lesion is much smaller in size at the right 9:00 position measuring 9 mm in length by 6 x 2 mm versus 10 x 9 x 4 mm previously. No solid masses are seen.. Overall Assessment: Benign, BI-RAD 2 Management: Screening Mammogram of both breasts in 9 months. A clinical breast exam by your physician is recommended on an annual basis and results should be correlated with mammographic findings. This exam should not preclude additional follow-up of suspicious palpable abnormalities. Results were given to the patient verbally at the time of exam. Electronically signed and approved by: Mario Fischer M.D. Radiologis
== END | disposition home or self-care (01) ==
LOC: RADMAMWWP 07:11
PROVIDERS: ATTEND Family Medicine
DX: N60.01 Solitary cyst of right breast (principal); R92.331 Mammographic heterogeneous density, right breast; R92.8 Other abnormal and inconclusive findings on diagnostic imaging of breast; Z78.0 Asymptomatic menopausal state
CPT/HCPCS: 77061; 77065

== ENCOUNTER → 2023-12-26 | Outpatient (CLI) | payer BC ==
[2023-12-26 15:08] LABS: Basophils # (A) 0.08 X 10*3/uL (0.00-0.10); Basophils % (A) 0.8 %; Eosinophils # (A) 0.37 X 10*3/uL (0.04-0.35); Eosinophils % (A) 3.6 %; HCT 41.5 % (37.2-46.3); Lymphocytes # (A) 2.43 X 10*3/uL (0.90-5.00); Lymphocytes % (A) 23.6 %; MCH 31.4 pg (27.0-32.0); MCHC 31.3 g/dL (32.0-37.0); MCV 100.2 FL (80.0-97.0); Mean Platelet Volume 10.8 FL (9.5-12.2); Monocytes # (A) 0.79 X 10*3/uL (0.20-1.00); Monocytes % (A) 7.7 %; NRBC Per 100 WBC 0 X 10*3/uL (0.00-0.01); Neutrophils # (A) 6.58 X 10*3/uL (1.80-7.70); Neutrophils % (A) 63.8 %; Platelet Count 309 X 10*3/uL (140-440); RBC 4.14 X 10*6/uL (4.10-5.20)
[2023-12-26 17:37] LABS: ALT 17 U/L (8-44); AST 16 U/L (13-35); Albumin 4.3 g/dL (3.8-4.9); Albumin/Globulin Ratio 1.95 Ratio (1.60-3.17); Alkaline Phosphatase 85 U/L (41-126); BUN/Creat Ratio 23.14 Ratio (12.00-20.00); Blood Urea Nitrogen 16.2 mg/dL (9.0-27.0); Calcium 9.5 mg/dL (8.7-10.3); Carbon Dioxide 24.4 mmol/L (21.6-31.8); Chloride 104 mmol/L (96-109); Chol/HDL Ratio 3.99 Ratio; Globulin 2.2 g/dL (1.6-3.3); Glucose 94 mg/dL (70-110); LDL Cholesterol,Calculated 136.1 mg/dL (0.0-131.0); Potassium 4.5 mmol/L (3.5-5.5); Sodium 141 mmol/L (135-145); Total Bilirubin 0.3 mg/dL (0.3-1.2); Total Protein 6.5 g/dL (6.2-8.2)
== END | disposition home or self-care (01) ==
LOC: LABWHC1 08:00
PROVIDERS: ATTEND Family Medicine
DX: Z00.00 Encounter for general adult medical examination without abnormal findings
CPT/HCPCS: 36415; 80053; 80061; 84443; 85025

== ENCOUNTER → 2024-03-20 | Outpatient (CLI) | payer BC ==
[2024-03-20 16:10] VITALS: BP 142/88; PULSE 78; RESP 18; TEMP 98
--- NOTE | 2024-03-20 16:26 | P.PROGSL ---
Subjective DATE: 03/20/2024 FOLLOW UP VISIT. Patient returned to sleep center for follow-up visit related to treatment of significant excessive daytime sleepiness secondary to narcolepsy. Patient is on treatment with Adderall 20 mg twice a day. With this regimen patient feels that her alertness is normal. . [place] sleepiness scale is 8, which is in normal range. MEDICATIONS:1. Lexapro 2. Famotidine 3. Adderall 20 mg twice a day 4. Rabeprazole During physical exam: GENERAL: A pleasant patient without any distress. VITAL SIGNS: Please see below, weight 189.6 pounds, BMI 31.7. HEENT: PERRLA, EOMI. NECK: Supple. No JVD. LUNGS: Clear to percussion and to auscultation. Good air exchange. No wheezing or rhonchi. HEART: S1, S2 regular. ABDOMEN: Soft and nontender. EXTREMITIES: No clubbing or cyanosis. INSURANCE ACTUARY: Awake, alert, and oriented x3. No focal deficit. Impressions: 1. Narcolepsy type II. MSLT 4.2 minutes without sleep onset rems, but patient on treatment with SSRIs. 2. History of anxiety. 3. Acid reflux. 4. Menopause. 5. Status post uterus ablation for bleeding. Plan: 1. Patient will continue treatment with Adderall 20 mg twice a day 2. Sleep hygiene with regular time in bed for at least 8 hours. 3. Daytime naps permitted 4. Precautions related to driving. No driving if feel any sleepiness. Patient is aware about civil and criminal liability for unsafe driving, promised to follow recommendations. 5. Follow up visit in 4-6 months or earlier if patient has any problems. Thank you very much for allowing me to participate in the management of your patient. Rancho Kaplan MD, PhD, FAASM. Diplomat of [place] [employer], Sleep Medicine Board by [place] [employer] Distance Education Faculty Liaison of [facility] [place] Objective - Vital Signs Vital Signs: Vital Signs Temp 98.0 F 03/20/24 16:08 Pulse 78 03/20/24 16:08 Resp 18 03/20/24 16:08 BP 142/88 03/20/24 16:08 Pulse Ox 98 03/20/24 16:08 FiO2 Intake & Output 03/19/24 03/20/24 03/20/24 18:59 06:59 18:59 Weight 85.899 kg Home Medications: Home Medications Medication Instructions Recorded Confirmed Type Albuterol Inhaler [Ventolin 1 - 2 puff INHALATION Q6HR PRN 09/18/14 09/21/14 History Inhaler] Budesonide/Formoterol Fumarate 2 puff INHALATION DIRECTED PRN 09/18/14 09/20/23 History [Symbicort 160-4.5 Mcg Inhaler] Escitalopram [Lexapro] 10 mg PO DAILY 09/18/14 09/20/23 History Linzess(Unknown Dose) PO DAILY 09/18/14 09/21/14 History Rizatriptan Benzoate [Maxalt] 10 mg PO DAILY PRN 09/18/14 09/21/14 History Dextroamphetamine/Amphetamine 10 mg PO TID 30 Days #90 tab 04/06/22 Rx [Adderall] Dextroamphetamine/Amphetamine 20 mg PO TID 3 Days #90 tab 06/15/22 09/20/23 Rx [Adderall] Dextroamphetamine/Amphetamine 10 mg PO TID 30 Days #90 tab 06/21/22 Rx [Adderall] Famotidine 20 mg PO BID 09/20/23 09/20/23 History Famotidine 40 mg PO 09/20/23 History RABEprazole SODIUM 20 mg PO BID 09/20/23 09/20/23 History
== END ==
LOC: 3 N SLEEP 15:58
PROVIDERS: ATTEND Internal Medicine
DX: G47.419 Narcolepsy without cataplexy (principal); F41.9 Anxiety disorder, unspecified; K21.9 Gastro-esophageal reflux disease without esophagitis; Z78.0 Asymptomatic menopausal state; Z98.890 Other specified postprocedural states; Z87.891 Personal history of nicotine dependence
CPT/HCPCS: 99212

== ENCOUNTER → 2024-07-14 | Outpatient (CLI) | payer BC ==
--- NOTE | 2024-07-14 08:28 | MM ---
Reason for Exam: Screening (asymptomatic). Last screening mammogram was performed 12 month(s) ago. Patient History: Menarche at age 14. First Full-Term at age 20. Postmenopausal. Risk Values: Julia 5 year model risk: 0.8%. NCI Lifetime model risk: 6.2%. Prior Study Comparison: 12/02/2013 Bilateral Screening Mammogram, [facility]. 07/05/2020 Bilateral Screening Mammogram, [facility]. 10/14/2021 Bilateral MG 3D diag mammo w/cad TALHA, [facility]. 06/21/2023 Bilateral MG 3D screening mammo w/cad, [facility]. 06/26/2023 Right MG 3D work up w/cad RT, [facility]. 09/26/2023 Right MG 3D diag mammo w/cad RT, [facility]. Tissue Density: There are scattered areas of fibroglandular density. Findings: Analyzed By CAD. There is no suspicious group of microcalcifications or new suspicious mass in either breast. Overall Assessment: Negative, BI-RAD 1 Management: Screening Mammogram of both breasts in 1 year. . Patient should continue monthly self-breast exams. A clinical breast exam by your physician is recommended on an annual basis. This exam should not preclude additional follow-up of suspicious palpable abnormalities. Note on Julia scores and lifetime risk: 1. A Julia score greater than 3% is considered moderate risk. If this is the case, consider specialist referral to assess eligibility for a risk reducing agent. 2. If overall lifetime risk for the development of breast cancer is 20% or higher, the patient may qualify for future screening with alternating mammogram and breast MRI. [facility], , 07/14/2024 8:24 AM. Electronically signed and approved by: Mario Fischer M.D. Radiologis
== END | disposition home or self-care (01) ==
LOC: RADMAMWWP 07:18
PROVIDERS: ATTEND Family Medicine
DX: Z12.31 Encounter for screening mammogram for malignant neoplasm of breast (principal); R92.323 Mammographic fibroglandular density, bilateral breasts; Z78.0 Asymptomatic menopausal state
CPT/HCPCS: 77063; 77067